=== PATIENT | male | born 1965 | race Native Hawaiian/Other Pacific Islander ===

== ENCOUNTER 2017-03-05 07:52 | Emergency (ER) | payer BC ==
[~2017-03-05] VITALS: Ht 167.6 cm; Wt 77.0 kg
[~2017-03-05 07:52] MED LIST: DONNTAB12 PO; OMEP20CA5 PO; POLY10O RIGHT EYE; SUCR1TAB6 PO; Z.0.NO CURRENT MEDS
[2017-03-05 07:56] VITALS: BP 158/100; PULSE 115; RESP 17; TEMP 99.4; O2SAT 97
--- NOTE | 2017-03-05 08:15 | PD ---
HPI Chief Complaint: Laceration/Skin Injury Time Seen by Provider: 08:08 Travel History International Travel<30 days: No Contact w/Intl Traveler<30days: No Traveled to known affect area: No History of Present Illness HPI Patient presents with concerns of a skin laceration on his scrotum which occurred approximately 30 minutes prior to arrival while shaving. Unable to recall tetanus. PFSH Past Surgical History Eye Surgery: Yes (J[facility] 2002) Social History Alcohol Use: Yes (OCCASIONALLY) Tobacco Use: No Substance Use: No Allergies-Medications (Allergen,Severity, Reaction): Coded Allergies: No Known Allergies (Verified , 03/05/17) Reported Meds & Prescriptions Reported Meds & Active Scripts Active Polytrim Opth (Polymyxin/Trimethoprim Sulfate) 10 Ml Soln 1 Drop RIGHT EYE Q4 7 Days Carafate (Sucralfate) 1 Gm Tab 1 Gm PO TIDACHS (Belladonna Alkaloids/Phenobarbital) Tab 1 Tab PO Q8HPRN Prilosec (Omeprazole) 20 Mg Capcr 20 Mg PO DAILY Reported No Current Meds (Miscellaneous Medication) Misc Review of Systems General / Constitutional: No: Fever Eyes: No: Visual changes HENT: No: Headaches Cardiovascular: No: Chest Pain or Discomfort Respiratory: No: Shortness of Breath Gastrointestinal: No: Abdominal Pain Genitourinary: No: Dysuria Musculoskeletal: No: Pain Skin: No Rash Neurologic: No: Weakness Psychiatric: No: Depression Endocrine: No: Polydipsia Hematologic/Lymphatic: No: Easy Bruising Physical Exam Narrative GENERAL: Well-nourished, well-developed patient. SKIN: Focused skin assessment warm/dry. HEAD: Normocephalic. EYES: No scleral icterus. No injection or drainage. NECK: Supple, trachea midline. No JVD or lymphadenopathy. CARDIOVASCULAR: Regular rate and rhythm without murmurs, gallops, or rubs. RESPIRATORY: Breath sounds equal bilaterally. No accessory muscle use. GASTROINTESTINAL: Abdomen soft, non-tender, nondistended. MUSCULOSKELETAL: No cyanosis, or edema. BACK: Nontender without obvious deformity. No CVA tenderness. Right scrotal region with a 2.5 cm superficial laceration well approximated Data Data Last Documented VS Vital Signs Date Time Temp Pulse Resp B/P Pulse Ox O2 Delivery O2 Flow Rate FiO2 6/11/17 07:56 99.4 115 17 158/100 97 [facility] Medical Decision Making Medical Screen Exam Complete: Yes Emergency Medical Condition: Yes Differential Diagnosis Scrotal laceration, skin tear, self-mutilation Narrative Course Assessment and plan discussed with patient at bedside Procedures Procedure Narrative Wound was cleaned in sterile fashion and Dermabond applied. Patient tolerated procedure well. Diagnosis Primary Impression: Scrotal laceration Qualified Code: S31.31XA - Scrotal laceration, initial encounter Patient Instructions: General Instructions Additional Instructions: Keep area clean and dry. Follow-up with PCP. Return to emergency room with any onset of new symptoms. General wound care. Motrin for discomfort Disposition: 01 DISCHARGE HOME Condition: Good Rafael Cox MD Mar 05, 2017 08:15
[2017-03-05] MEDS ORDERED: TETANUS/DIPHTHERIA TOXOID ADULT 0.5 ML VIAL IM ONE (08:30)
== END 2017-03-05 08:55 | disposition home or self-care (01) ==
LOC: PHED 07:52
DX: S31.31XA Laceration without foreign body of scrotum and testes, initial encounter (principal); Z23 Encounter for immunization; W26.9XXA Contact with unspecified sharp object(s), initial encounter; Y93.E8 Activity, other personal hygiene; Y92.9 Unspecified place or not applicable; Y99.8 Other external cause status
CPT/HCPCS: 12001; 90471; 90714